=== PATIENT | female | born 1975 | race African-American/Black ===

== ENCOUNTER 2021-01-20 22:27 | Emergency (ER) | payer OTHER ==
[~2021-01-20] VITALS: Ht 167.6 cm; Wt 122.5 kg
[2021-01-20] MEDS ORDERED: HYDROCHLOROTHIA25 M1 PO (22:50)
[2021-01-20] MEDS ORDERED: GLUMETZA500 PO (22:50)
[2021-01-20] MEDS ORDERED: INDERAL LA120 M1 (22:51)
[2021-01-20] MEDS ORDERED: WELLBUTRIN XL150 MG PO (22:51)
[2021-01-20] MEDS ORDERED: CELEXA 10 MG TA10 M1 PO (22:51)
[2021-01-21 00:37] LABS: URINE BILIRUBIN NEGATIVE (Negative); URINE BLOOD NEGATIVE (Negative); URINE CLARITY CLEAR; URINE COLOR YELLOW; URINE GLUCOSE-RANDOM NEGATIVE (Negative); URINE KETONES NEGATIVE (Negative); URINE LEUKOCYTES-REFLEX NEGATIVE (Negative); URINE NITRITE-REFLEX NEGATIVE (Negative); URINE PROTEIN NEGATIVE (Negative); URINE SPECIFIC GRAVITY <= 1.005 (1.005-1.030); URINE UROBILINOGEN 0.2 E.U./dl (0.2-1.0)
[2021-01-21 00:46] LABS: ABSOLUTE EOSINOPHILS 0.2 thou/uL (0.0-0.7); ABSOLUTE LYMPHOCYTES 1.5 thou/uL (0.8-5.3); ABSOLUTE MONOCYTES 0.6 thou/uL (0.0-1.2); ABSOLUTE NEUTROPHILS 3.7 thou/uL (1.6-8.1); BASOPHILS 0.8 %; EOSINOPHILS 3.9 %; HEMOGLOBIN 11.5 gm/dL (12.0-15.0); LYMPHOCYTES 24.9 %; MCHC 31.9 g/dL (28.0-37.0); MCV 78.4 fL (80.0-100.0); MONOCYTES 9.2 %; MPV 8.1 fl. (7.2-11.1); NUCLEATED RBCS 0 /100WBC; PLATELET COUNT* 262 thou/uL (150-400); POLYS 61.2 %; RBC 4.59 mil/uL (4.20-5.00); RDW-CV 17.5 % (10.5-14.5)
[2021-01-21 00:49] LABS: CALCIUM 8.8 mg/dL (8.5-10.1); POTASSIUM 3.7 mmol/L (3.5-5.1)
[2021-01-21 00:54] LABS: TOTAL BILIRUBIN 0.2 mg/dL (<0.1-1.0)
[2021-01-21] MEDS ORDERED: ZOFRAN ODT4 MG PO (01:36)
[2021-01-21 01:43] VITALS: BP 138/81
--- NOTE | 2021-01-21 12:55 | EKG ---
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
== END 2021-01-21 01:45 | disposition home or self-care (01) ==
LOC: M.ERS 22:27
PROVIDERS: Personal Emergency Response Attendant
DX: U09.9 Post COVID-19 condition, unspecified (principal); R51.9 Headache, unspecified; R11.0 Nausea; I10 Essential (primary) hypertension; Z79.899 Other long term (current) drug therapy

== ENCOUNTER 2021-04-05 15:33 | Emergency (ER) | payer OTHER ==
[~2021-04-05] VITALS: Ht 167.6 cm; Wt 113.4 kg
[~2021-04-05 15:33] MED LIST: CELEXA 10 MG TA10 M1 PO; GLUMETZA500 PO; HYDROCHLOROTHIA25 M1 PO; INDERAL LA120 M1; WELLBUTRIN XL150 MG PO; ZOFRAN ODT4 MG PO
[2021-04-05] MEDS ORDERED: PROTONIX 20 MG20 MG PO (15:43)
[2021-04-05 16:28] LABS: ABSOLUTE EOSINOPHILS 0.3 thou/uL (0.0-0.7); ABSOLUTE MONOCYTES 0.5 thou/uL (0.0-1.2); ABSOLUTE NEUTROPHILS 1.9 thou/uL (1.6-8.1); BASOPHILS 1.2 %; EOSINOPHILS 7.1 %; HEMATOCRIT 35.7 % (37.0-47.0); HEMOGLOBIN 11.2 gm/dL (12.0-15.0); LYMPHOCYTES 27.8 %; MCH 24.9 pg (26.0-34.0); MCHC 31.5 g/dL (28.0-37.0); MCV 79.2 fL (80.0-100.0); MONOCYTES 13.3 %; NUCLEATED RBCS 0 /100WBC; PLATELET COUNT* 248 thou/uL (150-400); POLYS 50.6 %; RBC 4.51 mil/uL (4.20-5.00); RDW-CV 17.3 % (10.5-14.5); WBC 3.7 thou/uL (4.0-11.0)
[2021-04-05 17:14] LABS: CALCIUM 8.3 mg/dL (8.5-10.1); CREATININE 0.9 mg/dL (0.6-1.3); POTASSIUM 3.7 mmol/L (3.5-5.1)
[2021-04-05 17:18] LABS: ALBUMIN 3.3 g/dL (3.4-5.0); TOTAL BILIRUBIN 0.2 mg/dL (<0.1-1.0); TOTAL PROTEIN 7.1 g/dL (6.4-8.2)
[2021-04-05] MEDS ORDERED: PROMETHAZI6.25 MG/5 PO (18:56)
[2021-04-05] MEDS ORDERED: TESSALON PERLE100 MG PO (18:56)
[2021-04-05 19:05] VITALS: BP 155/99
--- NOTE | 2021-04-07 13:11 | EKG ---
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 : 1975 Requested By: Rishabh Irizarry Order Number: [id number] MD: Karel Sal Measurements Intervals [place] Rate: 70 P: 49 UT: 161 QRS: 15 QRSD: 100 T: 21 QT: 408 QTc: 441 Interpretive Statements Sinus rhythm Possible left atrial enlargement Compared to ECG 01/21/2021 00:26:11 No significant changes Electronically Signed On 04-07-2021 13:11:48 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
== END 2021-04-05 19:06 | disposition home or self-care (01) ==
LOC: M.ERS 15:33
PROVIDERS: Physician Assistant
DX: U07.1 COVID-19 (principal); I10 Essential (primary) hypertension; Z98.890 Other specified postprocedural states; Z79.84 Long term (current) use of oral hypoglycemic drugs; Z79.899 Other long term (current) drug therapy